=== PATIENT | male | born 1985 | race Caucasian/White ===

== ENCOUNTER 2022-06-10 21:38 | Emergency (ER) | payer OTHER ==
[~2022-06-10] VITALS: Ht 170.2 cm; Wt 176.9 kg
[~2022-06-10 21:38] MED LIST: ACET325; ALBU90I INH; AMOCLA875 PO; AMOX500 PO; AZIT250 PO; BACL10 PO; BENZ100A PO; CEPH500 PO; CIPR500 PO; CYCL10 PO; DIAZ10 PO; DIPH50 PO; DOXY100 PO; HYDACE5 PO; HYDMOR2 PO; IBUP800 PO; KETO10 PO; LOPE2C PO; METPRE4DP PO; NAPR375; NAPR375 PO; NAPR500; NAPR500 PO; NAPR550 PO; OLOP.1OPSO OS; ONDA4ODT MM; OTC COLD MED; OXYACE5T PO; OXYACE7.5T; OXYACE7.5T PO; OXYC5 PO; PENVK500 PO; PRED20 PO; PROC10 PO; PROC25S PR; PROCODE120 PO; PROM25 PO; RANI150 PO; RXCYCL10 PO; RXHYDMOR2 PO; RXNAPNA550 PO; RXONDA4ODT MM; RXOXYACE PO; RXPENVK250 PO; RXPROCODSY PO; RXTRAM50 PO; SUDAFED PO; SULTRIDS PO; TAMS.4ER PO; TRAM50 PO; [UNRECOGNIZED DRUG - CODE] PO
[2022-06-10 22:19] LABS: BASOPHILS ABSOLUTE AUTO 0.06 K/mm3 (0.00-0.23); BASOPHILS PERCENT AUTO 1 % (0-2); EOSINOPHILS ABSOLUTE AUTO 0.25 K/mm3 (0.00-0.68); EOSINOPHILS PERCENT AUTO 2 % (0-6); Hematocrit 45.8 % (37.0-53.0); Hemoglobin 14.5 g/dL (13.5-17.5); IMMATURE GRAN ABSOLUTE AUTO 0.05 K/mm3 (0.00-0.10); IMMATURE GRAN PERCENT AUTO 1 % (0-1); LYMPHOCYTES ABSOLUTE AUTO 2.43 K/mm3 (0.84-5.20); LYMPHOCYTES PERCENT AUTO 22 % (21-46); MONOCYTES ABSOLUTE AUTO 0.84 K/mm3 (0.16-1.47); MONOCYTES PERCENT AUTO 8 % (4-13); Mean Corpuscular HGB 26.5 pg (26.0-34.0); Mean Corpuscular HGB Conc 31.7 g/dL (31.5-36.5); Mean Corpuscular Volume 84 fL (80-100); Mean Platelet Volume 10.6 fL (9.1-12.4); NEUTROPHILS ABSOLUTE AUTO 7.22 K/mm3 (1.96-9.15); NEUTROPHILS PERCENT AUTO 67 % (41-73); Platelet Count 279 K/mm3 (150-400); RDW Coefficient Variation 14.8 % (11.7-14.2); RDW Standard Deviation 45.1 fL (35.1-46.3); Red Blood Cell Count 5.48 M/mm3 (4.30-5.90); White Blood Cell Count 10.85 K/mm3 (4.00-11.30)
[2022-06-10 22:37] LABS: Albumin, Blood 3.3 g/dL (3.4-5.0); Albumin/Globulin Ratio 0.8 (0.8-1.8); Bilirubin, Total 0.4 mg/dL (0.1-1.0); Bun/Creatinine Ratio 21.8 (12.0-20.0); Calcium, Blood 9.2 mg/dL (8.5-10.1); Creatinine, Blood 0.78 mg/dL (0.60-1.20); Globulin, Blood 4.3 g/dL (2.2-4.0); Potassium, Blood 4.3 mmol/L (3.5-5.5); Total Protein, Blood 7.6 g/dL (6.4-8.2)
[2022-06-11 00:42] LABS: Influenza A, PCR NEGATIVE (NEGATIVE); Influenza B, PCR NEGATIVE (NEGATIVE); Resp Syncytial Virus, PCR NEGATIVE (NEGATIVE); SARS-Cov-2 (COVID-19) PCR, MMC NEGATIVE (NEGATIVE)
[2022-06-11 00:45] VITALS: BP 139/86
== END 2022-06-11 01:26 | disposition home or self-care (01) ==
LOC: ER 21:38
PROVIDERS: Physician Assistant; Student in an Organized Health Care Education/Training Program
DX: B34.9 Viral infection, unspecified (principal); Z88.1 Allergy status to other antibiotic agents; Z88.8 Allergy status to other drugs, medicaments and biological substances; Z91.048 Other nonmedicinal substance allergy status; F17.210 Nicotine dependence, cigarettes, uncomplicated
CPT/HCPCS: 0241U; 71046; 80053; 83880; 84484; 85025; 93005; 93010

== ENCOUNTER 2024-11-29 09:09 | Observation (INO) | payer OTHER ==
[~2024-11-29] VITALS: Ht 172.7 cm; Wt 177.4 kg
[2024-11-29] MEDS ORDERED: NS 1,000 ML IV SCH (10:05)
[2024-11-29 10:58] LABS: BASOPHILS ABSOLUTE AUTO 0.04 K/mm3 (0.00-0.23); BASOPHILS PERCENT AUTO 1 % (0-2); EOSINOPHILS ABSOLUTE AUTO 0.15 K/mm3 (0.00-0.68); EOSINOPHILS PERCENT AUTO 2 % (0-6); Hematocrit 46.3 % (37.0-53.0); Hemoglobin 14.7 g/dL (13.5-17.5); IMMATURE GRAN ABSOLUTE AUTO 0.02 K/mm3 (0.00-0.10); IMMATURE GRAN PERCENT AUTO 0 % (0-1); LYMPHOCYTES ABSOLUTE AUTO 2.54 K/mm3 (0.84-5.20); LYMPHOCYTES PERCENT AUTO 33 % (21-46); MONOCYTES ABSOLUTE AUTO 0.52 K/mm3 (0.16-1.47); MONOCYTES PERCENT AUTO 7 % (4-13); Mean Corpuscular HGB Conc 31.7 g/dL (31.5-36.5); Mean Corpuscular Volume 85 fL (80-100); NEUTROPHILS ABSOLUTE AUTO 4.35 K/mm3 (1.96-9.15); NEUTROPHILS PERCENT AUTO 57 % (41-73); NRBC ABSOLUTE 0.00 K/mm3 (0.00-0.02); NRBC Auto 0.0 /100 WBC (0.0-0.2); Platelet Count 260 K/mm3 (150-400); RDW Coefficient Variation 14.5 % (11.7-14.2); RDW Standard Deviation 44.4 fL (35.1-46.3)
[2024-11-29 11:14] LABS: Alanine Aminotransfer (ALT/SGP 29.0 U/L (12-78); Albumin, Blood 3.5 g/dL (3.4-5.0); Albumin/Globulin Ratio 0.8 (0.8-1.8); Anion Gap 10.0 mmol/L (3-11); Aspartate Aminotrans (AST/SGOT 19.0 U/L (12-37); Bilirubin, Total 0.5 mg/dL (0.1-1.0); Blood Urea Nitrogen 15.0 mg/dL (8-24); CO2, Blood 25.0 mmol/L (21-32); Calcium, Blood 9.0 mg/dL (8.5-10.1); Chloride, Blood 104.0 mmol/L (98-108); Creatinine, Blood 0.77 mg/dL (0.60-1.20); Globulin, Blood 4.6 g/dL (2.2-4.0); Glucose, Blood 118.0 mg/dL (70-99); Potassium, Blood 3.7 mmol/L (3.5-5.5); Sodium, Blood 135.0 mmol/L (136-145); Total Protein, Blood 8.1 g/dL (6.4-8.2)
[2024-11-29] MEDS ORDERED: MetroNIDAZOLE 500MG/NS 100 ml 100 ML IV ONE (15:50)
[2024-11-29] MEDS ORDERED: Ciprofloxacin 400MG/D5 200ML 200 ML IV ONE (15:50)
[2024-11-29] MEDS ORDERED: Ondansetron HCl 2 MG / ML 2ML Vial IV PRN (16:30)
[2024-11-29] MEDS ORDERED: FLU VACC TS2025-26(6MOS UP)/PF 45 MCG/0.5 ML SYRINGE IM SCH (16:30)
[2024-11-29] MEDS ORDERED: AMOX500 PO (16:47)
[2024-11-29] MEDS ORDERED: ZESTRIL40 M1 PO (16:48)
[2024-11-29] MEDS ORDERED: EC-NAPROSYN500 MG PO (16:49)
[2024-11-29] MEDS ORDERED: ROXICODONE15 MG PO (16:51)
[2024-11-29 18:23] VITALS: BP 142/100
[2024-11-29 19:56] VITALS: BP 127/74
[2024-11-29 20:41] LABS: BASOPHILS ABSOLUTE AUTO 0.04 K/mm3 (0.00-0.23); BASOPHILS PERCENT AUTO 1 % (0-2); EOSINOPHILS ABSOLUTE AUTO 0.14 K/mm3 (0.00-0.68); EOSINOPHILS PERCENT AUTO 2 % (0-6); Hematocrit 44.9 % (37.0-53.0); Hemoglobin 14.2 g/dL (13.5-17.5); IMMATURE GRAN ABSOLUTE AUTO 0.03 K/mm3 (0.00-0.10); IMMATURE GRAN PERCENT AUTO 0 % (0-1); LYMPHOCYTES ABSOLUTE AUTO 2.07 K/mm3 (0.84-5.20); LYMPHOCYTES PERCENT AUTO 29 % (21-46); MONOCYTES ABSOLUTE AUTO 0.56 K/mm3 (0.16-1.47); MONOCYTES PERCENT AUTO 8 % (4-13); Mean Corpuscular HGB Conc 31.6 g/dL (31.5-36.5); Mean Corpuscular Volume 85 fL (80-100); NEUTROPHILS ABSOLUTE AUTO 4.40 K/mm3 (1.96-9.15); NEUTROPHILS PERCENT AUTO 61 % (41-73); NRBC ABSOLUTE 0.00 K/mm3 (0.00-0.02); NRBC Auto 0.0 /100 WBC (0.0-0.2); Platelet Count 242 K/mm3 (150-400); RDW Coefficient Variation 14.7 % (11.7-14.2); RDW Standard Deviation 46.3 fL (35.1-46.3)
[2024-11-30 04:50] LABS: BASOPHILS ABSOLUTE AUTO 0.06 K/mm3 (0.00-0.23); BASOPHILS PERCENT AUTO 1 % (0-2); EOSINOPHILS ABSOLUTE AUTO 0.18 K/mm3 (0.00-0.68); EOSINOPHILS PERCENT AUTO 2 % (0-6); Hematocrit 45.5 % (37.0-53.0); Hemoglobin 14.2 g/dL (13.5-17.5); IMMATURE GRAN ABSOLUTE AUTO 0.04 K/mm3 (0.00-0.10); IMMATURE GRAN PERCENT AUTO 1 % (0-1); LYMPHOCYTES ABSOLUTE AUTO 2.50 K/mm3 (0.84-5.20); LYMPHOCYTES PERCENT AUTO 30 % (21-46); MONOCYTES ABSOLUTE AUTO 0.75 K/mm3 (0.16-1.47); MONOCYTES PERCENT AUTO 9 % (4-13); Mean Corpuscular HGB Conc 31.2 g/dL (31.5-36.5); Mean Corpuscular Volume 86 fL (80-100); NEUTROPHILS ABSOLUTE AUTO 4.82 K/mm3 (1.96-9.15); NEUTROPHILS PERCENT AUTO 58 % (41-73); NRBC ABSOLUTE 0.00 K/mm3 (0.00-0.02); NRBC Auto 0.0 /100 WBC (0.0-0.2); Platelet Count 251 K/mm3 (150-400); RDW Coefficient Variation 14.9 % (11.7-14.2); RDW Standard Deviation 46.9 fL (35.1-46.3)
--- NOTE | 2024-11-30 05:13 | NUR ---
SHIFT SUMMARY ADMIT 11.29.24 IN PM FOR HEMATOCHEZIA, CONCERN FOR LOWER GIB AND EARLY DEVELOPING DIVERTICULITIS. H&H HAVE BEEN STABLE. PT REMAINED ASYMPTOMATIC SINCE TIME OF ARRIVAL TO ROOM CONCERNING GI, AND HAS HAD NO FURTHER BLOOD BY RECTUM. CHRONIC LOW BACK PAIN AND INSOMNIA WELL-CONTROLLED WITH MEDS PER EMAR. VAPE LOCKED IN DRAWER #[id number] WITH PT LABEL. PT HAVING ICE CHIPS + CLEAR SIPS WATER TIL 0000, THEN NPO SINCE 0000.
[2024-11-30 05:18] LABS: Alanine Aminotransfer (ALT/SGP 29.0 U/L (12-78); Albumin, Blood 3.3 g/dL (3.4-5.0); Albumin/Globulin Ratio 0.8 (0.8-1.8); Anion Gap 9.0 mmol/L (3-11); Aspartate Aminotrans (AST/SGOT 20.0 U/L (12-37); Bilirubin, Total 0.7 mg/dL (0.1-1.0); Blood Urea Nitrogen 12.0 mg/dL (8-24); CO2, Blood 26.0 mmol/L (21-32); Calcium, Blood 9.0 mg/dL (8.5-10.1); Chloride, Blood 103.0 mmol/L (98-108); Creatinine, Blood 0.74 mg/dL (0.60-1.20); Globulin, Blood 4.3 g/dL (2.2-4.0); Glucose, Blood 99.0 mg/dL (70-99); Potassium, Blood 4.2 mmol/L (3.5-5.5); Sodium, Blood 134.0 mmol/L (136-145); Total Protein, Blood 7.6 g/dL (6.4-8.2)
[2024-11-30 06:38] VITALS: BP 161/88
[2024-11-30 07:51] VITALS: BP 181/99
[2024-11-30 07:53] VITALS: BP 177/103
--- NOTE | 2024-11-30 13:25 | NUR ---
DISCHARGE NOTE PATIENT IND IN ROOM, TOOK SHOWER, HAD HEART HEALTHY SNACK AT BEDSIDE. IV REMOVED WITHOUT TROUBLE. PATIENT EDUCATED ABOUT FOLLOW UP APPOINTMENTS, IMPORTANCE OF HEALTHY DIET AND MEDICATION MANAGEMENT. D/C INSTRUCTIONS GIVEN TO PATIENT AND PATIENT HAD WHEEL CHAIR RIDE BY MEDICAL STAFF OUT TO PERSONAL VEHICLE. PATIENT DENIED ANY OTHER QUESTIONS OR CONCERNS.
== END 2024-11-30 13:38 | disposition home or self-care (01) ==
LOC: ER 09:09 → MEDS 09:10
PROVIDERS: Internal Medicine; Student in an Organized Health Care Education/Training Program; ADMIT Student in an Organized Health Care Education/Training Program
DX: K57.33 Diverticulitis of large intestine without perforation or abscess with bleeding (principal); I10 Essential (primary) hypertension; G89.29 Other chronic pain; M54.50 Low back pain, unspecified; K04.7 Periapical abscess without sinus; F17.210 Nicotine dependence, cigarettes, uncomplicated; F17.290 Nicotine dependence, other tobacco product, uncomplicated; E66.813 Obesity, class 3; Z68.44 Body mass index [BMI] 60.0-69.9, adult; Z88.1 Allergy status to other antibiotic agents; Z88.8 Allergy status to other drugs, medicaments and biological substances; Z91.09 Other allergy status, other than to drugs and biological substances
CPT/HCPCS: 36415; 74174; 80053; 83690; 85025; 86850; 86900; 86901; 96361; 96365-59; 96367; 99285-25; A9270; G0378; J0744; J7030; Q9967